=== PATIENT | female | born 1980 | race Asian ===

== ENCOUNTER 2017-03-26 09:55 | Inpatient (IN) | payer SELFPAY ==
[~2017-03-26] VITALS: Ht 155 cm; Wt 92.1 kg
[2017-03-27] MEDS ORDERED: IRON65TA11 PO (01:11)
[2017-03-27] MEDS ORDERED: PREN1SGL25 PO (01:11)
[2017-03-27] MEDS ORDERED: LACTATED RINGERS 1,000 ML IV SCH (01:12)
[2017-03-27] MEDS ORDERED: CARBOPROST 250 MCG/ML AMP IM PRN (01:15)
[2017-03-27] MEDS ORDERED: METHYLERGONOVINE 0.2 MG/ML AMP IM SCH (01:15)
[2017-03-27 01:19] VITALS: BP 114/65
[2017-03-27 01:33] LABS: BASOPHILS # (AUTO) 0.1 K/uL (0.00-0.22); EOSINOPHILS # (AUTO) 0.1 K/uL (0-0.4); EOSINOPHILS % (AUTO) 1.6 % (0.0-4.0); HEMATOCRIT 37.7 % (36-48); HEMOGLOBIN 12.6 g/dL (12.0-16.0); MEAN CORPUSCULAR HEMOGLOBIN 30 pg (27-31); MEAN CORPUSCULAR HGB CONC 33 g/dL (33-37); MEAN CORPUSCULAR VOLUME 90 fL (80-94); MONOCYTES # (AUTO) 0.4 K/uL (0.8-1.0); MONOCYTES % (AUTO) 5.3 % (1.7-9.3); NEUTROPHILS # (AUTO) 5.1 K/uL (1.8-7.7); NEUTROPHILS % (AUTO) 66.1 % (42.2-75.2); PLATELET COUNT (AUTO) 282 K/uL (140-450); RED BLOOD CELL COUNT(AUTO) 4.18 MIL/uL (4.20-5.40); RED CELL DISTRIBUTION WIDTH 12.9 % (11.6-13.7); WHITE BLOOD COUNT (AUTO) 7.7 K/uL (4.8-10.8)
[2017-03-27 01:33] LABS: APPEARANCE,URINE SL CLOUDY (CLEAR); BILIRUBIN,URINE NEGATIVE (NEGATIVE); BLOOD, URINE NEGATIVE (NEGATIVE); COLOR,URINE YELLOW (YELLOW); LEUKOCYTE ESTERASE ,URINE NEGATIVE (NEGATIVE); NITRITE, URINE NEGATIVE (NEGATIVE); PROTEIN,URINE NEGATIVE (NEGATIVE); UGLUCOSE NEGATIVE (NEGATIVE); UROBILINOGEN,URINE 0.2 EU/dL (0.2 - 1)
[2017-03-27 01:51] LABS: ALBUMIN 2.8 g/dL (3.4-5.0); ANION GAP 17.2 (8-16); CALCIUM 8.5 mg/dL (8.5-10.1); CARBON DIOXIDE 21.8 mmol/L (21-32); CREATININE 0.9 mg/dL (0.6-1.3); TOTAL BILIRUBIN 0.2 mg/dL (0.0-1.0); TOTAL PROTEIN, SERUM 7.1 g/dL (6.4-8.2)
[2017-03-27 02:28] LABS: BACTERIA,URINE 4+ /HPF (None Seen); MUCUS,URINE 4+ /LPF (None Seen); RBC,URINE 0-5 (RARE) /HPF (0-5); SQUAMOUS EPITHELIAL CELL,UR 20-50 /LPF (0-3 (FEW))
[2017-03-27] MEDS ORDERED: ceFAZolin 1,000 MG VIAL ONE (06:29)
[2017-03-27] MEDS ORDERED: TRIAMCINOLONE 40 MG/ML 5ML VIAL ONE (07:24)
[2017-03-27] MEDS ORDERED: OXYTOCIN 10 UNITS/ML VIAL ONE (07:24)
[2017-03-27] MEDS ORDERED: BUPIVACAINE-MPF 0.75% 10 ML VIAL INJ ONE (07:25)
[2017-03-27] MEDS ORDERED: ePHEDrine 50 MG/ML VIAL ONE (07:25)
[2017-03-27] MEDS ORDERED: ONDANSETRON 4 MG/2 ML VIAL ONE (07:25)
[2017-03-27] MEDS ORDERED: MIDAZOLAM 2 MG/2 ML VIAL ONE (07:39)
[2017-03-27] MEDS ORDERED: fentaNYL 0.05 MG/ML VIAL ONE (07:39)
[2017-03-27] MEDS ORDERED: MORPHINE PRES FREE 10 MG/10 ML AMP IV ONE (07:40)
[2017-03-27] MEDS ORDERED: KETAMINE 500 MG/5 ML VIAL ONE (07:40)
--- NOTE | 2017-03-27 07:56 | NUR ---
PATIENT HAS BEEN SCREENED AND CATEGORIZED LOW NUTRITION RISK. PATIENT WILL BE SEEN WITHIN 7 DAYS OF ADMISSION. 04/02/[address]
[2017-03-27] MEDS ORDERED: OXYTOCIN 10 UNITS/ML VIAL IM ONE (08:10)
[2017-03-27] MEDS ORDERED: ONDANSETRON 4 MG/2 ML VIAL IVP PRN (08:15)
[2017-03-27] MEDS ORDERED: KETOROLAC 30 MG/ML VIAL IVP PRN (08:15)
[2017-03-27] MEDS ORDERED: diphenhydrAMINE 50 MG/ML VIAL IVP PRN (08:15)
[2017-03-27] MEDS ORDERED: OXYTOCIN 20 UNITS/LR PREMIX 1,000 ML IV SCH (09:24)
[2017-03-27] MEDS ORDERED: TRIMETHOBENZAMIDE 200 MG/2 ML SYR IM PRN ×2 (09:25→09:30)
[2017-03-27] MEDS ORDERED: SIMETHICONE 80 MG TAB.CHEW PO PRN ×2 (09:25→09:30)
[2017-03-27] MEDS ORDERED: TEMAZEPAM 15 MG CAP PO PRN (09:25)
[2017-03-27] MEDS ORDERED: oxyCODONE/APAP 5/325 MG 1 TAB TAB PO PRN (09:25)
[2017-03-27] MEDS ORDERED: HYDROcodone/APAP 5/325 MG 1 TAB TAB PO PRN ×2 (09:25)
[2017-03-27] MEDS ORDERED: MEASLES, MUMPS, AND RUBELLA 1 VIAL SQVAC PRN (09:30)
[2017-03-27] MEDS ORDERED: METHYLERGONOVINE 0.2 MG/ML AMP IM PRN (09:30)
[2017-03-27] MEDS: OXYTOCIN 20 UNITS/LR PREMIX 1,000 ML IV SCH ×2 (10:04→18:08)
[2017-03-27] MEDS ORDERED: CALCIUM POLYCARBOPHIL 625 MG TAB PO SCH (13:00)
[2017-03-27] MEDS ORDERED: DOCUSATE SOD/SENNA 50/8.6 MG 1 TAB PO SCH (21:00)
[2017-03-27] MEDS: DOCUSATE SOD/SENNA 50/8.6 MG 1 TAB PO SCH (21:00)
[2017-03-28] MEDS ORDERED: HYDROcodone/APAP 5/325 MG 1 TAB TAB PO PRN (02:00)
[2017-03-28] MEDS ORDERED: TEMAZEPAM 15 MG CAP PO PRN (02:00)
[2017-03-28] MEDS ORDERED: oxyCODONE/APAP 5/325 MG 1 TAB TAB PO PRN (02:00)
[2017-03-28] MEDS: OXYTOCIN 20 UNITS/LR PREMIX 1,000 ML IV SCH (02:48)
[2017-03-28 06:08] LABS: BASOPHILS % (AUTO) 0.3 % (0.0-2.0); EOSINOPHILS # (AUTO) 0.2 K/uL (0-0.4); EOSINOPHILS % (AUTO) 1.6 % (0.0-4.0); HEMATOCRIT 33.3 % (36-48); HEMOGLOBIN 11.2 g/dL (12.0-16.0); LYMPHOCYTES # (AUTO) 1.1 K/uL (2.5-16.5); LYMPHOCYTES % (AUTO) 10.8 % (20.5-51.1); MEAN CORPUSCULAR HEMOGLOBIN 31 pg (27-31); MEAN CORPUSCULAR HGB CONC 34 g/dL (33-37); MEAN CORPUSCULAR VOLUME 91 fL (80-94); MONOCYTES # (AUTO) 0.6 K/uL (0.8-1.0); MONOCYTES % (AUTO) 6.2 % (1.7-9.3); NEUTROPHILS # (AUTO) 8.2 K/uL (1.8-7.7); NEUTROPHILS % (AUTO) 81.1 % (42.2-75.2); PLATELET COUNT (AUTO) 210 K/uL (140-450); RED BLOOD CELL COUNT(AUTO) 3.67 MIL/uL (4.20-5.40); RED CELL DISTRIBUTION WIDTH 12.7 % (11.6-13.7); WHITE BLOOD COUNT (AUTO) 10.1 K/uL (4.8-10.8)
[2017-03-28] MEDS: IBUPROFEN 800 MG TAB PO PRN (15:40)
[2017-03-28] MEDS: DOCUSATE SOD/SENNA 50/8.6 MG 1 TAB PO SCH (21:17)
[2017-03-29] MEDS: IBUPROFEN 800 MG TAB PO PRN (15:34)
[2017-03-29] MEDS: DOCUSATE SOD/SENNA 50/8.6 MG 1 TAB PO SCH (20:31)
== END 2017-03-30 12:00 | disposition home or self-care (01) | DRG 766 ==
LOC: MLD 03-27 → MFCC 03-27 01:04
PROVIDERS: ADMIT Obstetrics & Gynecology; ATTEND Obstetrics & Gynecology
PROC: 10D00Z1 Extraction of Products of Conception, Low, Open Approach (ICD-10-PCS; principal; 2017-03-27 07:00)
PROC: 3E0234Z Introduction of Serum, Toxoid and Vaccine into Muscle, Percutaneous Approach (ICD-10-PCS; 2017-03-29)
DX: O34.211 Maternal care for low transverse scar from previous cesarean delivery (principal); Z23 Encounter for immunization; Z37.0 Single live birth; Z3A.00 Weeks of gestation of pregnancy not specified
CPT/HCPCS: 36415; 51702; 80053; 81001; 85025; 86592; 86886; 86900; 86901; 87086; 90715; J0690; J2250; J2270; J2405; J2590; J3010; J3301; J3490; J7060; J7120